=== PATIENT | male | born 1975 | race Caucasian/White ===

== ENCOUNTER 2017-01-27 00:56 | Emergency (ER) | payer OTHER ==
[2017-01-27 01:08] VITALS: RESP 16; O2SAT 96
--- NOTE | 2017-01-27 01:13 | EDPHY ---
H & P Stated Complaint: [facility] fall struck back of head, head lac HPI/ROS: HPI CHIEF COMPLAINT: Mechanical trip and fall, alcohol intoxication, head strike, head laceration HISTORY OF PRESENT ILLNESS: Patient is a 41-year-old male, states he was in a parking lot and tripped over somebody. He reports he drank a lot of alcohol this evening and is intoxicated. He had head strike against concrete. Unclear if there was LOC. Denies any neck pain. Does complain of a posterior headache. He additionally also has a stellate laceration to the posterior occiput. Denies any other complaints. Denies chest pain or shortness of breath. Denies numbness or tingling. Past Medical History: Denies medical history Past Surgical History: Denies surgical history Social History: Denies daily use of drugs alcohol tobacco products. Did drink alcohol this evening. Had multiple beers and liquor. Family History: Noncontributory ROS REVIEW OF SYSTEMS: A comprehensive 10 point review of systems is otherwise negative aside from elements mentioned in the history of present illness. Exam Constitutional smells of alcohol, intoxicated, triage nursing summary reviewed , vital signs reviewed, awake/alert. Eyes normal conjunctivae and sclera, EOMI, PERRLA. HENT head/neck: Posterior occiput hematoma present. Stellate laceration present. 3 cm x 2 cm. No midline cervical spine pain. No step-offs or crepitus. moist mucus membranes, no epistaxis, neck supple/ no meningismus, no raccoon eyes. Respiratory clear to auscultation bilaterally, normal breath sounds, no respiratory distress, no wheezing. Cardiovascular rate normal, regular rhythm, no murmur, no edema, distal pulses normal. Gastrointestinal soft, non-tender, no rebound, no guarding, normal bowel sounds, no distension, no pulsatile mass. Genitourinary no CVA tenderness. Musculoskeletal no midline vertebral tenderness, full range of motion, no calf swelling, no tenderness of extremities, no meningismus, good pulses, neurovascularly intact. Skin pink, warm, & dry, no rash, skin atraumatic. Neurologic intoxicated, smells of alcohol, awake, alert and oriented x 3, AAOx3 , moves all 4 extremities equally, motor intact, sensory intact, CN II-XII intact, normal cerebellar, normal vision, normal speech. Psychiatric normal mood/affect. Heme/Lymph/Immune no lymphadenopathy. Differential Diagnosis: Includes but is not limited to in a particular order, closed-head injury, intracranial bleed, skull fracture, scalp contusion, scalp hematoma, scalp laceration, acute alcohol intoxication. Medical Decision Making: Plan for this patient CT head without contrast for trauma, CT cervical spine without contrast for trauma, laceration repaired clean. Re-evaluation: CT scan of the head and neck without contrast for trauma are negative for acute traumatic injury. Scalp hematoma with laceration present. Patient understands to have bianca removed. Laceration Repair Procedure: Verbal Consent was obtained, Under sterile conditions, The patient had lidocaine with epinephrine used approximately 7ccs to local anesthetize the Stellate 3cm x 2cm posterior scalp Laceration. The wound was copiously irrigated with sterile fluid, the wound was explored for foreign bodies there were none visualized, the wound was explored with a sterile glove to the base. There are no deep structures involved, including no arterial injury. TEN BIANCA PLACED IN LACERATION. He had good close approximation of the wound edges. He Tolerated this well. Patient understands keep the wound clean, dry and protected. Bianca removed in 7 days. Warm soapy water is fine. Nothing directly in the wound. Source: Patient - Personal History Current Tetanus/Diphtheria Vaccine: Yes Tetanus Vaccine Date: < 10 years - Medical/Surgical History Hx Asthma: No Hx Chronic Respiratory Disease: No Hx Diabetes: No Hx Cardiac Disease: No Hx Renal Disease: No Hx Cirrhosis: No Hx Alcoholism: No Hx HIV/AIDS: No Hx Splenectomy or Spleen Trauma: No Other PMH: PMHx: denies. PSHx: rhinoplasty/septoplasty, herniated disk, oral surgery for wisdom teeth - Social History Smoking Status: Current every day smoker Constitutional: Initial Vital Signs Temperature (C) 36.5 C 01/27/17 01:03 Heart Rate 92 01/27/17 01:03 Respiratory Rate 16 01/27/17 01:03 Blood Pressure 136/91 H 01/27/17 01:03 O2 Sat (%) 96 01/27/17 01:03 O2 Delivery Mode Room Air Allergies/Adverse Reactions: No Known Allergies Allergy (Unverified 08/20/14 11:47) Home Medications: Medication Instructions Recorded NK [No Known Home Meds] 01/27/17 Departure - Departure Disposition: Home, Routine, Self-Care Clinical Impression: Laceration Condition: Good Instructions: Laceration (ED), Staple Care (ED) Additional Instructions: 1. Your bianca need to be removed in 7 days. 2. Keep her wound clean, dry and protected. 3. Warm soapy water is fine. Nothing directly in the wound. Referrals: NONE *PRIMARY CARE P,. [Primary Care Provider] - As per Instructions
[2017-01-27 02:35] VITALS: BP 139/89; PULSE 67; TEMP 98.4
== END 2017-01-27 02:34 | disposition home or self-care (01) ==
DX: S01.01XA Laceration without foreign body of scalp, initial encounter (principal); F17.200 Nicotine dependence, unspecified, uncomplicated; W01.198A Fall on same level from slipping, tripping and stumbling with subsequent striking against other object, initial encounter; Y99.8 Other external cause status